=== PATIENT | male | born 1980 | race Caucasian/White ===

== ENCOUNTER 2022-02-07 15:51 | Outpatient (RCR) | payer OTHER, SELFPAY ==
--- NOTE | 2022-02-07 16:46 | MHC.PT.EP ---
[facility] [place] [facility] [place] [facility] [place] [facility] [address] Nica Araujo [address] [phone] F: [phone] F: [phone] F: [phone] F: [phone] Physical Therapy Plan of Care Date of Evaluation: Date of Surgery: n/a Diagnosis: low back pain Assessment: Patient is a 41 year old male presenting to PT with complaints of pain in his low back. Pt reports onset of pain began November 2021 due to running and misstepping and then walking slightly off afterwards. He presents today with impairments in pain, lumbar ROM, hip strength, core strength, and posture. 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 Pt expresses manager intermediate goal of strengthening, and is motivated to work towards this in PT. Clinical presentation today is most consistent with signs and sx associated with low back pain that is likely myofascial in nature and pt will benefit from skilled PT to address the following problems and impairments noted upon evaluation: pain, lumbar ROM, hip strength, core strength, and posture. These problems limit the patient with the following functional activities: ambulating, ADLs, work, running. The prescribed treatment plan of care is medically necessary. Co-morbidities of none were identified and taken into considerations of plan of care. Pt was educated on HEP, role of PT, prognosis, POC. Frequency and Duration: The patient will be seen 2 x week x 4 weeks Short Term Goals: Pt will demonstrate ability to perform PPT with good TAC recruitment in 2 weeks for improved stability. Pt will demonstrate improved hip MMT by 1/3 grade in 2 weeks for improved lumbopelvic stability. Pt will demonstrate improved postural awareness by sitting with biomechanically correct posture without cues throughout session to improve overall postural function in 2 weeks. Proced Tech Goals: Pt will demonstrate improved Kari score by 10% for improved functional mobility in 4 weeks. Pt will demonstrate ability to ambulate for prolonged periods of time with min to no pain in 4 weeks for return to PLOF. Pt will demonstrate ability to run with min to no pain in 4 weeks for ability to tolerate physical test for work. Treatment Plan: Modalities to reduce pain, spasms and effusion. Manual therapy to restore motion and function. Therapeutic exercise to improve strength and flexibility. Neuromuscular re-education for posture and balance. Therapeutic activities to return to functional activities of daily living. Electronically signed by: Christianne Caldwell PT, DPT, ATC Please sign and return to therapist. Thank you for your referral.
--- NOTE | 2022-03-26 15:42 | MHC.PT.DC ---
[place] Office [place] [facility] [place] Office [address] Araujo [address] [phone] F: [phone] F: [phone] F: [phone] F: [phone] Physical Therapy Discharge Report Diagnosis: low back pain Date of Surgery: n/a Date of Evaluation: 02/07/22 Date of Discharge: 03/26/22 Treatments to Date: 1 Cancellations to Date: 0 No Shows to Date: 0 Discharge Status: Visit Non-compliance Discharge Summary: Pt did not schedule follows after evaluation despite recommendations to do so. Pt has not been seen in >30 days and therefore will be d/c per our policy. Electronically signed by: Christianne Caldwell, PT, DPT, ATC Please sign and return to therapist. Thank you for your referral.
== END 2022-03-26 15:43 | disposition home or self-care (01) ==
LOC: HO.PTCHIC 15:51
PROVIDERS: Visit Provider Physician Assistant
DX: M54.50 Low back pain, unspecified (principal)
CPT/HCPCS: 97110; 97161

== ENCOUNTER 2023-09-22 15:36 | Outpatient (REF) | payer OTHER, SELFPAY ==
[2023-09-22 16:16] LABS: MANUAL DIFF FLAG NO
[2023-09-22 16:42] LABS: Basophils Percent Auto 0.6 % (0-2); Eosinophils Absolute Auto 0.1 X10*3/uL (0.0-0.4); Eosinophils Percent Auto 1.5 % (0-4); Hemoglobin 14.2 g/dl (14.0-18.0); Imm Gran Abs Auto 0.01 X10*3/uL (0.00-0.03); Imm Gran Pct Auto 0.2 % (0.0-0.4); Lymphocytes Absolute Auto 1.7 X10*3/uL (1.2-4.9); Lymphocytes Percent Auto 32.3 % (20-40); Mean Corpuscular HGB Conc 33.8 g/dl (31.0-36.0); Mean Corpuscular Hemoglobin 29.7 pg (27.0-33.0); Mean Corpuscular Volume 87.9 fL (80.0-98.0); Mean Platelet Volume 9.3 fL (9.4-12.4); Monocytes Absolute Auto 0.3 X10*3/uL (0.1-1.2); Monocytes Percent Auto 5.7 % (2-11); Neutrophils Absolute Auto 3.1 x10*3/uL (2.0-8.3); Neutrophils Percent Auto 59.7 % (45-73); Platelet Count 262 X10*3/uL (160-400); Red Blood Count 4.78 X10*6/uL (4.60-5.80); Red Cell Distribution Width 12.7 % (11.0-16.0); White Blood Count 5.2 X10*3/uL (4.8-10.8)
[2023-09-24 04:38] LABS: Class Alternaria alternata 1; Class Aspergillus fumigatus 2; Class Bermuda Grass 2; Class Birch 2; Class Cat Dander 2; Class Cladosporium herbarum 2; Class Cockroach 1; Class Common Ragweed 2; Class Cottonwood 0/1; Class Derm. pterony 3; Class Dermatophagoides farinae 3; Class Dog Dander 2; Class Elm 0/1; Class Maple Box Elder 1; Class Mountain Cedar 0; Class Mouse Urine Protein 0/1; Class Mugwort 2; Class Oak 3; Class Penicillium crysogenum 0/1; Class Rough Pigweed 0/1; Class Sheep Sorrel 0; Class Sycamore 0/1; Class Timothy Grass 2; Class Walnut Tree 0/1; Class White Ash 0/1; Class White Mulberry 0; D001 IgE D pteronyssinus 6.04 kU/L; D002 - IgE D farinae 7.49 kU/L; E001 - IgE Cat Dander 0.92 kU/L; E005 - IgE Dog Dander 2.93 kU/L; E072-IgE Mouse Urine 0.16 kU/L; G002 IgE Bermuda Grass 0.86 kU/L; G006 - IgE Timothy Grass 1.61 kU/L; I006-IgE Cockroach, German 0.38 kU/L; Immunoglobulin E 160 kU/L (<OR=114); M001 IgE Penicillium chrysogen 0.18 kU/L; M002 - IgE Cladosporium herbar 1.24 kU/L; M003 - IgE Aspergillus fumigat 1.38 kU/L; M006 - IgE Alternaria alternat 0.42 kU/L; T001 IgE Maple/Box Elder 0.48 kU/L; T003 IgE Common Silver Birch 2.96 kU/L; T006 - IgE Cedar, Mountain <0.10 kU/L; T007 - IgE Oak, White 4.53 kU/L; T008 IgE Elm, American 0.13 kU/L; T010 - IgE Walnut 0.21 kU/L; T011 - IgE Maple Leaf Sycamore 0.23 kU/L; T014 - IgE Cottonwood 0.17 kU/L; T015 - IgE Ash, White 0.12 kU/L; T070 - IgE White Mulberry <0.10 kU/L; W001 - IgE Ragweed, Short 1.29 kU/L; W006 - IgE Mugwort 1.21 kU/L; W014 IgE Pigweed, Common 0.16 kU/L; W018 IgE Sheep Sorrel <0.10 kU/L
== END 2023-09-22 15:37 | disposition home or self-care (01) ==
LOC: HO.LAB 15:36
PROVIDERS: PCP Nurse Practitioner Primary Care; Visit Provider Nurse Practitioner Family
DX: J45.909 Unspecified asthma, uncomplicated (principal); Z91.09 Other allergy status, other than to drugs and biological substances
CPT/HCPCS: 36415; 82785; 85025; 86003

== ENCOUNTER 2023-09-22 15:36 | Outpatient (AMB) | payer OTHER, SELFPAY ==
--- NOTE | 2023-09-21 21:08 | MHC.OFFVIS ---
Intake Vital Signs 09/22/23 15:40 Height 5 ft 7 in Weight 174 lb 2.643 oz BMI 27.3 BP 126/70 Blood Pressure Location Rt brachial Position Sitting Pulse 63 Pulse Source Pulse Oximeter Pulse Oximetry (%) 98 Oxygen Delivery Method Room Air Intake Visit Reasons: Shortness of breath Radio Program Checker Required: No Client Technologies Analyst: Client Technologies Analyst offered & declined Accompanied by: Self / Same As Patient Allergies No Known Allergies Allergy (Verified 09/22/23 15:44) Medication List - Last Reconciled 09/22/23 by Kimmie Chang LPN No Known Home Meds HPI Shortness of breath HPI Details Zackery is a pleasant 42 year old male, never smoker with underlying childhood asthma. He was referred by PCP for pulmonary evaluation. He reports dyspnea with moderate exertion and occasional wheezing, chest tightness and dry cough. He has been using an ICS and albuterol MDI with suboptimal effect. He reports seasonal allergies, using antihistamine PRN. Previously on allergen immunotherapy as a child. No recent allergy testing. He reports mother with asthma, father and brother with heart failure. Reports recent stress test, unremarkable. No echo or recent PFT. He denies any occupational exposures. [facility] Social History (Updated 09/22/23 @ 15:45 by Kimmie Chang LPN) Patient Tobacco Use Status: Never used Tobacco Review of Systems Const Denies chills, Denies excessive sweating, Denies fever(s), Denies headache(s) and Denies night sweats Eyes Denies dry eyes, Denies irritation and Denies itchy eyes ENT Reports Normal hearing present, Denies headache(s), Denies nasal congestion, Denies nasal discharge, Denies post nasal drip and Denies sore throat Card Denies chest pain, Denies chest pain at rest, Denies chest pain with activity, Denies claudication, Denies leg edema, Denies orthopnea and Denies paroxysmal nocturnal dyspnea Resp Denies chest congestion, Denies excessive phlegm production, Denies pain on inspiration, Denies pain with cough and Denies stridor Musc Denies myalgias Neuro Reports Normal hearing present and Denies headache(s) Endo Denies excessive sweating Khanh/Lymph Denies lymphadenopathy Aller/Immun Denies itchy eyes and Denies seasonal rhinorrhea Physical Exam Vital Signs: Last Vital Signs Pulse 63 09/22/23 15:40 BP 126/70 09/22/23 15:40 Pulse Ox 98 09/22/23 15:40 Oxygen Delivery Method Room Air 09/22/23 15:40 BMI result Body Mass Index 27.3 Const General: cooperative, healthy appearing, comfortable, no acute distress, well developed and alert Orientation/consciousness: patient oriented x3 Limitations: no limitations HEENT Head: Yes normal to inspection, Yes normocephalic and Yes atraumatic Ears: hearing grossly normal bilaterally and external ears normal Eyes General: appearance normal, both eyes and all related structures Eyelids: Yes eyelids normal Sclerae: sclerae normal EOM: EOMs intact bilaterally Neck Neck: Yes normal visual inspection and Yes no lymphadenopathy Lymphatic: no lymphadenopathy noted Chest Chest palpation & inspection: normal inspection of the chest Resp Effort & Inspection: normal respiratory effort, able to speak in complete sentences, no audible wheezes, no cough, no stridor, not tachypneic, no tripod positioning and no use of accessory muscles Auscultation: clear to auscultation bilaterally Cardio Jugular venous distension: no JVD Rate: regular rate Rhythm: regular rhythm Skin Other: warm, dry General skin exam: no rashes or lesions noted Neuro General: patient oriented x3 Cranial nerves: Yes Normal hearing present Cognition (Neuro): normal cognition Gait exam (Neuro): Normal gait present Extrem General: Yes normal to inspection, Yes capillary refill normal, Yes no clubbing, cyanosis or edema and Yes no pedal edema Psych Appearance: grossly normal and well kempt Speech and movement: Normal speech and movement present and Clear speech present Affect: normal affect Attitude: cooperative Thought process: Normal thought process present Thought content: Normal thought content present Insight: Good insight present (Psych) Judgement: Good judgement present (Psych) Assessment & Plan Assessment & Plan (1) Asthma: Code(s): J45.909 - Unspecified asthma, uncomplicated (2) Environmental allergies: Code(s): Z91.09 - Other allergy status, other than to drugs and biological substances Plan Zackery's symptoms are likely related to underlying asthma with a possible allergic component. Will send for PFT and RAST to evaluate. Will empirically start on Breo. All questions were answered and patient is in agreement of plan. Will follow up after to review results and response to inhaler. Orders: Orders Complete Blood Count Auto Diff Today J45.909 - Unspecified asthma, uncomplicated, Z91.09 - Other allergy status, other than to drugs and biological substances Immunoglobulin E Today Z91.09 - Other allergy status, other than to drugs and biological substances Resp Allergy Profile Region I Today Z91.09 - Other allergy status, other than to drugs and biological substances PFT pulmonary function test Today J45.909 - Unspecified asthma, uncomplicated Medications: New fluticasone furoate-vilanterol 100-25 mcg/dose (Breo Ellipta) 1 inh inhalation DAILY 60 ea 6RF Coding Level of Care Code New Pt Level 3 (44082) Diagnoses Asthma J45.909 Environmental allergies Z91.09
[2023-09-22 15:40] VITALS: BP 126/70; PULSE 63; O2SAT 98; BMI 27.3
== END 2023-09-22 15:59 | disposition home or self-care (01) ==
PROVIDERS: PCP Nurse Practitioner Primary Care; Visit Provider Nurse Practitioner Family
DX: J45.909 Unspecified asthma, uncomplicated (principal); Z91.09 Other allergy status, other than to drugs and biological substances
CPT/HCPCS: 99203

== ENCOUNTER 2023-11-20 14:56 | Outpatient (REF) | payer OTHER, SELFPAY ==
[2023-11-20 11:06] VITALS: PULSE 71; RESP 16; O2SAT 98
--- NOTE | 2023-11-20 15:48 | PFT_ITS ---
Flows: FEV1: 94 % of predicted at 3.55 L FVC: 92 % of predicted at 4.32 L FEV1/FVC: 82 % Bronchodilator response: Absent Volumes: Total lung capacity: 81 % of predicted at 5.23 L Residual volume: 76 % of predicted at 1.13 L Slow vital capacity: 82 % of predicted at 4.10 L Expiratory reserve volume: 65 % of predicted at 0.87 L Diffusion capacity: Normal Impression: No obstructive or restrictive ventilatory defect. No bronchodilator response. Essentially normal pulmonary function test. MTDD
== END 2023-11-20 14:57 | disposition home or self-care (01) ==
LOC: HO.RESP 14:56
PROVIDERS: PCP Nurse Practitioner Primary Care; Visit Provider Nurse Practitioner Family
DX: J45.909 Unspecified asthma, uncomplicated (principal)
CPT/HCPCS: 94010; 94640; 94727; 94729

== ENCOUNTER → 2023-11-20 15:48 | Outpatient (BNV) | payer OTHER, SELFPAY | PROVIDERS: PCP Nurse Practitioner Primary Care; Visit Provider Internal Medicine Pulmonary Disease | DX: J45.909 Unspecified asthma, uncomplicated (principal) | CPT/HCPCS: 94060; 94727; 94729 ==